=== PATIENT | female | born 1955 | race Caucasian/White ===

== ENCOUNTER 2016-11-12 15:08 | Inpatient (IN) | payer MEDICARE, MEDICAID ==
--- NOTE | 2016-11-12 16:01 | Diagnostic Imaging Report ---
Left tib-fib 2 views and left ankle 2 views Indication: Fracture Comparison: Left ankle x-ray the same day Findings: An external fixator is seen fixating the distal tibial shaft to the hindfoot. Comminuted distal fibular and medial malleolus fractures are noted. There are probable additional talar fractures. Osteopenia is noted. No x-ray evidence of hardware loosening. Degenerative changes of the hindfoot and midfoot are noted. Impression: External fixator fixating distal tibial and fibular fracture and probable talar fracture. The calcaneus cannot be well evaluated on this exam. No evidence of gross hardware loosening, however, exam was limited due to positioning. In the setting of trauma, if clinical symptoms persist and there is continued concern for an occult fracture, follow up exams in 5-7 days is suggested.
--- NOTE | 2016-11-12 16:49 | ED Physician Chart ---
ED Chief Complaint/HPI - Patient Information Date Seen:: 11/12/16 Time Seen:: 15:20 Chief Complaint:: LEFT LEG PAIN History of Present Illness:: THIS IS A 61 YO PSYCH PATIENT SENT TO ER FOR AN EVALUATION OF HER LEFT LOWER LEG WHICH S/P FIXATION SURGERY. SHE IS CHRONICALLY ILL WITH SEIZURES, HYPERTENSION AND A BIPOLAR CONDITION. Allergies:: Allergies Allergy/AdvReac Type Severity Reaction Status Date / Time No Known Allergies Allergy Verified 11/12/16 15:11 Vitals:: Vital Signs - 8 hr 11/12/16 15:11 Temp 97.7 F HR 51 RR 17 BP 142/68 O2 Sat % 98 Historian:: Patient Review:: Nurse's Note Reviewed, Old Chart Reviewed, Transfer documents Reviewed ED Review of Systems - Review of Systems General/Constitutional: No fever, No chills, No weight loss, No weakness, No diaphoresis, No edema, No loss of appetite Skin: No skin lesions, No rash, No bruising Head: No headache, No light-headedness Eyes: No loss of vision, No pain, No diplopia ENT: No earache, No nasal drainage, No sore throat, No tinnitus Neck: No neck pain, No swelling, No thyromegaly, No stiffness, No mass noted Cardio Vascular: No chest pain, No palpitations, No PND, No orthopnea, No edema Pulmonary: No SOB, No cough, No sputum, No wheezing GI: No nausea, No vomiting, No diarrhea, No pain, No melena, No hematochezia, No constipation, No hematemesis G/U: No dysuria, No frequency, No hematuria Musculoskeletal: Bone or joint pain (LEFT LOWER LEG PAIN), No back pain, No muscle pain Endocrine: No polyuria, No polydipsia Psychiatric: No prior psych history, No depression, No anxiety, No suicidal ideation Hematopoietic: No bruising, No lymphadenopathy Allergic/Immuno: No urticaria, No angioedema Neurological: No syncope, No focal symptoms, No weakness, No paresthesia, No headache, No seizure, No dizziness, No confusion, No vertigo ED Past Medical History - Past Medical History Obtainable: Yes Past Medical History: HTN, Dementia Family History: None Social History: Non Smoker, No Alcohol, No Drug Use, Care Facility Surgical History: other (LEFT LOWER LEG SURGERY) Family Medical History - Family Member Mother History Unknown: Yes ED Physical Exam - Physical Examination General/Constitutional: Awake, Well-developed, well-nourished, Alert, No distress, GCS 15, Non-toxic appearing, Ambulatory Head: Atraumatic Eyes: Lids, conjuctiva normal, PERRL, EOMI Skin: Nl inspection, No rash, No skin lesions, No ecchymosis, Well hydrated, No lymphadenopathy ENMT: External ears, nose nl, Nasal exam nl, Lips, teeth, gums nl Neck: Nontender, Full ROM w/o pain, No JVD, No nuchal rigidity, No bruit, No mass, No stridor Respiratory: Nl effort/Exclusion, Clear to Auscultation, No Wheeze/Rhonchi/Rales Cardio Vascular: RRR, No murmur, gallop, rubs, NL S1 S2 GI: No tenderness/rebounding/guarding, No organomegaly, No hernia, Normal BS's, Nondistended, No mass/bruits, No McBurney tenderness : No CVA tenderness Extremities: Full ROM, normal strength in all extremities, No edema, Normal digits & nails Other Extremities comments:: LEG ANKLE AND FOOT ARE S/P SURGERY WITH SWELLING AND PINKNESS. Neuro/Psych: Alert/oriented, DTR's symmetric, Normal sensory exam, Normal motor strength, Judgement/insight normal, Mood normal, Normal gait, No focal deficits Misc: normal gait, Normal back, No paraspinal tenderness ED Labs/Radiology/EKG Results - Lab Results Results: Abnormal Lab Results 11/12/16 11/12/16 11/12/16 16:55 16:55 16:55 WBC 5.2 RBC 3.86 Hgb 11.5 L Hct 34.4 L MCV 89.2 MCH 29.8 MCHC Differential 33.5 RDW 13.5 Plt Count 185 MPV 8.8 Neutrophils % 49.8 Lymphocytes % 37.6 Monocytes % 7.1 Eosinophils % 5.0 Basophils % 0.5 PT INR Sodium 120 L Potassium 3.7 Chloride 90 L Carbon Dioxide 24.1 Anion Gap 9.6 BUN 16 Creatinine 0.8 Est GFR ( Amer) > 60.0 Est GFR (Non-Af Amer) > 60.0 BUN/Creatinine Ratio 20.0 Glucose 102 Calcium 9.4 Total Bilirubin 0.3 AST 15 ALT 8 Alkaline Phosphatase 80 Troponin I Total Protein 6.0 Albumin 3.9 Globulin 2.1 Albumin/Globulin Ratio 1.9 H Triglycerides 142 Cholesterol 172 LDL Cholesterol Direct 101 HDL Cholesterol 65 11/12/16 11/12/16 16:55 16:55 WBC RBC Hgb Hct MCV MCH MCHC Differential RDW Plt Count MPV Neutrophils % Lymphocytes % Monocytes % Eosinophils % Basophils % PT 10.5 INR 1.01 Sodium Potassium Chloride Carbon Dioxide Anion Gap BUN Creatinine Est GFR ( Amer) Est GFR (Non-Af Amer) BUN/Creatinine Ratio Glucose Calcium Total Bilirubin AST ALT Alkaline Phosphatase Troponin I 0.01 Total Protein Albumin Globulin Albumin/Globulin Ratio Triglycerides Cholesterol LDL Cholesterol Direct HDL Cholesterol - Radiology Results Results: LEFT LOWER EXT X-RAY = S/P SURGERY NOTED. ED Assessment - Assessment General Assessment: LEFT LEG PAIN ELECTROLYTE IMBALANCE ED Septic Shock - . Is Septic Shock (SBP<90, OR Lactate>4 mmol\L) present?: No - <6hrs of presentation: Vital Signs: Vital Signs - 8 hr 11/12/16 15:11 Temp 97.7 F HR 51 RR 17 BP 142/68 O2 Sat % 98 ED Reassessment (Disposition) - Reassessment Reassessment Condition:: Unchanged - Diagnosis Diagnosis:: ELECTROLYE IMBALANCE LEFT LEG PAIN PSYCHOSIS - Patient Disposition Admitting Medical Physician:: Laurie Tesfaye ED Discharge Plan - Patient Disposition Admit/Discharge/Transfer: Acute Care w/in this hosp Condition at Disposition: Unchanged
[2016-11-12 17:10] LABS: % BASOPHILS 0.5 % (0.0-2.0); % LYMPHOCYTES 37.6 % (20.0-50.0); % MONOCYTES 7.1 % (2.0-10.0); % NEUTROPHILS 49.8 % (40.0-80.0); HEMATOCRIT 34.4 % (35.0-45.0); HEMOGLOBIN 11.5 gm/dL (11.7-15.5); MEAN CELL VOLUME 89.2 fl (81-100); MEAN CORPUSCULAR HEMOGLOBIN 29.8 pg (27.0-31.0); MEAN CORPUSCULAR HGB CONC 33.5 pg (28.0-36.0); MEAN PLATELET VOLUME 8.8 fl; NEUTROPHILE ABSOLUTE 2.5 Th/cmm (1.8-8.0); PLATELET COUNT 185 Th/cmm (150-400); RED BLOOD COUNT 3.86 Mil/cmm (3.80-5.10); RED CELL DISTRIBUTION WIDTH 13.5 % (11.5-20.0); WHITE BLOOD COUNT 5.2 Th/cmm (4.8-10.8)
[2016-11-12 17:19] LABS: INR 1.01 (0.5-1.4); PROTHROMBIN TIME (TEST) 10.5 SECONDS (9.5-11.5)
[2016-11-12 17:20] LABS: CHOLESTEROL 172 mg/dL (<200); TRIGLYCERIDES 142 mg/dL (<150)
[2016-11-12 17:22] LABS: ALB/GLOB RATIO 1.9 (1.0-1.8); ALKALINE PHOSPHATASE 80 U/L (34-104); BILIRUBIN,TOTAL 0.3 mg/dL (0.3-1.0); BUN - UREA NITROGEN 16 mg/dL (7-25); CALCIUM SERUM 9.4 mg/dL (8.6-10.3); CARBON DIOXIDE 24.1 mEq/L (21.0-31.0); CHLORIDE 90 mEq/L (98-107); CREATININE - SERUM 0.8 mg/dL (0.6-1.2); GLUCOSE 102 mg/dL (70-105); POTASSIUM SERUM 3.7 mEq/L (3.5-5.1); SGOT 15 U/L (13-39); SGPT/ALT 8 U/L (7-52)
[2016-11-12 17:25] LABS: ANION GAP 9.6 (7.0-16.0)
[2016-11-12 17:26] LABS: URINE BILIRUBIN NEGATIVE (NEGATIVE); URINE BLOOD NEGATIVE (NEGATIVE); URINE GLUCOSE (UA) NEGATIVE (NEGATIVE); URINE KETONE NEGATIVE (NEGATIVE); URINE PROTEIN NEGATIVE (NEGATIVE); URINE UROBILINOGEN 0.2 E.U./dL (0.2 - 1.0)
[2016-11-12 17:27] LABS: SODIUM SERUM 120 mEq/L (136-145)
[2016-11-12 17:35] LABS: URINE COLOR YELLOW
[2016-11-12 17:36] LABS: URINE BACTERIA OCCASIONAL /hpf (NONE SEEN); URINE EPITHELIAL CELLS OCCASIONAL /lpf (FEW); URINE RBC NONE SEEN /hpf (0-5)
[2016-11-12] MEDS ORDERED: Albuterol Nebulizer 2.5mg/3mL HHN PRN (22:03)
[2016-11-12] MEDS ORDERED: Diphenoxylate/Atropine 2.5mg Tab PO PRN (22:03)
[2016-11-12] MEDS ORDERED: Magnesium Hydroxide (MOM) 30 mL UDC PO PRN (22:05)
[2016-11-12] MEDS ORDERED: Fleet Enema 135 mL RC PRN (22:05)
[2016-11-12] MEDS ORDERED: Maalox 30 mL Cup PO PRN (22:05)
[2016-11-12] MEDS: Sodium Chloride 0.9% 1,000 ML IV SCH (22:22)
[2016-11-12 23:38] VITALS: BP 137/70
[2016-11-12] MEDS ORDERED: Pneumococcal Vaccine 0.5 mL Vial IM ONE (23:49)
--- NOTE | 2016-11-13 | History & Physical ---
ADMIT DATE: 11/12/2016 HISTORY OF PRESENT ILLNESS: The patient well known to me 61-year-old female patient known to have a history of bipolar disorder in the past, history of status post fixation surgery for her left lower ankle and she has persistent edema in that leg on and off, history of seizures, history of hypertension, history of hyponatremia in the past. The patient came because of increasing swelling, increase in pain and patient was admitted for further evaluation of Orthopedic evaluation as well as Psychiatric evaluation. PAST MEDICAL HISTORY: As enumerated above. REVIEW OF SYSTEMS: Negative. PHYSICAL EXAMINATION: HEAD: Normal. ENT: Normal. NECK: Supple, nontender. LUNGS: Clear. CARDIOVASCULAR SYSTEM: S1, S2 heard. ABDOMEN: Soft. Bowel sounds are heard. EXTREMITIES: Left ankle swelling was noted LABORATORY DATA: Sodium was 120, potassium was 3.7 and electrolytes were otherwise normal. Hemoglobin 11.5, hematocrit was 35. DIAGNOSES: Severe hyponatremia; left leg swelling, severe pain, status post prior surgery and history of psychosis. PLAN: The patient is being admitted. I will go ahead and give normal saline, to replace her sodium and I will have Dr. Simon see the patient. I will give her Lasix and also we will give pain medication and have Orthopedic consultation and I will follow the patient. JOB# [id number]
[2016-11-13] MEDS: Sodium Chloride 0.9% 1,000 ML IV SCH ×2 (03:52→12:37)
[2016-11-13] MEDS: Multivitamin w/ Minerals Tab PO SCH (08:59)
[2016-11-13] MEDS ORDERED: Non-Formulary Item 1 EA (Cranberry Fruit Extract [Cranberry] 425 MG) PO SCH (09:00)
[2016-11-13] MEDS: Pantoprazole 40 mg EC Tab PO SCH (09:00)
[2016-11-13] MEDS: Hydrocodone/APAP 5mg/325mg Tab PO PRN ×3 (09:04→22:29)
[2016-11-13] MEDS: Aspirin 81mg Chewable Tab PO SCH (09:05)
--- NOTE | 2016-11-13 14:34 | General Progress Note ---
Subjective - Review of Systems Events since last encounter: patient with no distress Objective - Results Result Diagrams: 11/12/16 16:55 11/12/16 16:55 Recent Labs: Laboratory Last Values WBC 5.2 Th/cmm (4.8-10.8) 11/12/16 16:55 RBC 3.86 Mil/cmm (3.80-5.10) 11/12/16 16:55 Hgb 11.5 gm/dL (11.7-15.5) L 11/12/16 16:55 Hct 34.4 % (35.0-45.0) L 11/12/16 16:55 MCV 89.2 fl (81-100) 11/12/16 16:55 MCH 29.8 pg (27.0-31.0) 11/12/16 16:55 MCHC Differential 33.5 pg (28.0-36.0) 11/12/16 16:55 RDW 13.5 % (11.5-20.0) 11/12/16 16:55 Plt Count 185 Th/cmm (150-400) 11/12/16 16:55 MPV 8.8 fl 11/12/16 16:55 Neutrophils % 49.8 % (40.0-80.0) 11/12/16 16:55 Lymphocytes % 37.6 % (20.0-50.0) 11/12/16 16:55 Monocytes % 7.1 % (2.0-10.0) 11/12/16 16:55 Eosinophils % 5.0 % (0.0-5.0) 11/12/16 16:55 Basophils % 0.5 % (0.0-2.0) 11/12/16 16:55 PT 10.5 SECONDS (9.5-11.5) 11/12/16 16:55 INR 1.01 (0.5-1.4) 11/12/16 16:55 Sodium 120 mEq/L (136-145) L 11/12/16 16:55 Potassium 3.7 mEq/L (3.5-5.1) 11/12/16 16:55 Chloride 90 mEq/L (98-107) L 11/12/16 16:55 Carbon Dioxide 24.1 mEq/L (21.0-31.0) 11/12/16 16:55 Anion Gap 9.6 (7.0-16.0) 11/12/16 16:55 BUN 16 mg/dL (7-25) 11/12/16 16:55 Creatinine 0.8 mg/dL (0.6-1.2) 11/12/16 16:55 Est GFR ( Amer) > 60.0 ml/min (>90) 11/12/16 16:55 Est GFR (Non-Af Amer) > 60.0 ml/min 11/12/16 16:55 BUN/Creatinine Ratio 20.0 11/12/16 16:55 Glucose 102 mg/dL (70-105) 11/12/16 16:55 Calcium 9.4 mg/dL (8.6-10.3) 11/12/16 16:55 Total Bilirubin 0.3 mg/dL (0.3-1.0) 11/12/16 16:55 AST 15 U/L (13-39) 11/12/16 16:55 ALT 8 U/L (7-52) 11/12/16 16:55 Alkaline Phosphatase 80 U/L (34-104) 11/12/16 16:55 Troponin I 0.01 ng/mL (0.01-0.05) 11/12/16 16:55 Total Protein 6.0 gm/dL (6.0-8.3) 11/12/16 16:55 Albumin 3.9 gm/dL (3.7-5.3) 11/12/16 16:55 Globulin 2.1 gm/dL 11/12/16 16:55 Albumin/Globulin Ratio 1.9 (1.0-1.8) H 11/12/16 16:55 Triglycerides 142 mg/dL (<150) 11/12/16 16:55 Cholesterol 172 mg/dL (<200) 11/12/16 16:55 LDL Cholesterol Direct 101 mg/dL (75-193) 11/12/16 16:55 HDL Cholesterol 65 mg/dL (23-92) 11/12/16 16:55 TSH 1.62 uIU/ml (0.34-5.60) 11/12/16 16:55 Urine Source CLEAN C 11/12/16 16:45 Urine Color YELLOW 11/12/16 16:45 Urine Clarity CLEAR (CLEAR) 11/12/16 16:45 Urine pH 7.0 (4.6 - 8.0) 11/12/16 16:45 Ur Specific [place] <= 1.005 (1.005-1.030) 11/12/16 16:45 Urine Protein NEGATIVE mg/dL (NEGATIVE) 11/12/16 16:45 Urine Glucose (UA) NEGATIVE mg/dL (NEGATIVE) 11/12/16 16:45 Urine Ketones NEGATIVE mg/dL (NEGATIVE) 11/12/16 16:45 Urine Blood NEGATIVE (NEGATIVE) 11/12/16 16:45 Urine Nitrate NEGATIVE (NEGATIVE) 11/12/16 16:45 Urine Bilirubin NEGATIVE (NEGATIVE) 11/12/16 16:45 Urine Urobilinogen 0.2 E.U./dL (0.2 - 1.0) 11/12/16 16:45 Ur Leukocyte Esterase SMALL (NEGATIVE) H 11/12/16 16:45 Urine RBC NONE SEEN /hpf (0-5) 11/12/16 16:45 Urine WBC 2-5 /hpf (0-5) 11/12/16 16:45 Ur Epithelial Cells OCCASIONAL /lpf (FEW) 11/12/16 16:45 Urine Bacteria OCCASIONAL /hpf (NONE SEEN) 11/12/16 16:45 RPR NONREACTIVE (NONREACTIVE) 11/12/16 16:55 - Physical Exam Vitals and I&O: Vital Signs Temp 98.7 F 11/13/16 12:00 Pulse 50 11/13/16 12:00 Resp 20 11/13/16 12:00 BP 137/63 11/13/16 12:00 Pulse Ox 97 11/13/16 12:00 Intake & Output 11/12/16 11/13/16 11/13/16 18:59 06:59 18:59 Intake Total 770 1000 Balance 770 1000 Weight (lbs) 72.348 kg Intake: Intake, IV Amount 770 1000 Sodium Chloride 0.9% 1, 770 1000 000 ml @ 140 mls/hr IV . Q7H9M [facility] Rx#:[id number] Active Medications: Current Medications Acetaminophen (Tylenol) 650 mg PO Q4HR PRN PRN Reason: FEVER >101 OR PAIN Last Admin: 11/13/16 12:37 Dose: 650 mg Acetaminophen/Hydrocodone Bitart ([place] 5mg/325mg) 1 tab PO Q6H PRN PRN Reason: Severe Pain Last Admin: 11/13/16 09:04 Dose: 1 tab Al Hydrox/Mg Hydrox/Simethicone (Maalox) 30 ml PO Q6H PRN PRN Reason: Heartburn Albuterol Sulfate (Albuterol 2.5mg/3ml Neb Ud) 2.5 mg HHN Q4H PRN PRN Reason: Shortness of Breath Ascorbic Acid (Vitamin C) 1,000 mg PO DAILY JULIA Stop: 01/12/17 08:59 Last Admin: 11/13/16 09:00 Dose: 1,000 mg Aspirin (Aspirin Chewable) 81 mg PO DAILY@1000 JULIA Stop: 01/12/17 08:59 Last Admin: 11/13/16 09:05 Dose: 81 mg Atenolol (Tenormin) 50 mg PO DAILY JULIA Stop: 01/12/17 08:59 Last Admin: 11/13/16 09:00 Dose: 50 mg Carisoprodol (Soma) 350 mg PO Q8H PRN PRN Reason: MUSCLE PAIN Stop: 01/11/17 22:02 Last Admin: 11/13/16 13:45 Dose: 350 mg Diphenoxylate HCl/Atropine (Lomotil) 1 tab PO Q8H PRN PRN Reason: Diarrhea Stop: 01/11/17 22:02 Docusate Sodium (Colace) 100 mg PO DAILY [facility] Stop: 01/12/17 08:59 Last Admin: 11/13/16 08:59 Dose: 100 mg Escitalopram Oxalate (Lexapro) 10 mg PO DAILY JULIA PRN Reason: Protocol Stop: 01/12/17 08:59 Gabapentin (Neurontin) 100 mg PO DAILY [facility] Stop: 01/12/17 08:59 Last Admin: 11/13/16 08:59 Dose: 100 mg Hydrochlorothiazide (Hctz) 12.5 mg PO DAILY [facility] Stop: 01/12/17 08:59 Last Admin: 11/13/16 08:59 Dose: 12.5 mg Sodium Chloride (Nacl 0.9%) 1,000 mls @ 140 mls/hr IV .Q7H9M [facility] Stop: 01/11/17 20:49 Last Admin: 11/13/16 12:37 Dose: 140 mls/hr Lorazepam (Ativan) 1 mg PO Q6H PRN; Protocol PRN Reason: Anxiety Stop: 01/11/17 22:04 Magnesium Hydroxide (Milk Of Magnesia) 30 ml PO HS PRN PRN Reason: Constipation Stop: 01/11/17 22:04 Naproxen (Naprosyn) 500 mg PO BIDWM JULIA Stop: 01/12/17 11:59 Last Admin: 11/13/16 13:42 Dose: 500 mg Ondansetron HCl (Zofran Odt) 4 mg PO Q6HR PRN PRN Reason: Nausea / Vomiting Stop: 01/11/17 22:04 Pantoprazole Sodium (Protonix) 40 mg PO DAILY JULIA Stop: 01/12/17 08:59 Last Admin: 11/13/16 09:00 Dose: 40 mg Quetiapine Fumarate (Seroquel) 25 mg PO HS JULIA PRN Reason: Protocol Stop: 01/12/17 20:59 Sodium Phosphate (Fleet Enema) 135 ml RC Q48H PRN PRN Reason: IF DULCOLAX INEFFECTIVE FOR CO Stop: 01/11/17 22:04 Assessment/Plan - Problem List Patient Problems: All Active Problems PAIN AND SWELLING TO LEFT ANKLE (Acute)
[2016-11-13] MEDS ORDERED: Sodium Chloride 3% 500 ML IV ONE (14:43)
[2016-11-13] MEDS ORDERED: VTE Chemical Prophylaxis Screen/Admission MC PRN (15:20)
--- NOTE | 2016-11-14 02:25 | Consultation ---
DATE OF CONSULTATION: 11/13/[address] Viera. IDENTIFYING INFORMATION: The patient is a 61-year-old female. HISTORY OF PRESENT ILLNESS: The patient reports she has depression. The patient reports she has been depressed, has long history of depression off and on, but recently got worse in the last 2 months. She reported that she has been having difficulty with sleep unless she takes her medication. She is taking Seroquel at bedtime that help her sleep as well as Lexapro 10 mg a day. The patient reported no auditory or visual hallucination or paranoia. No substance abuse problems. PAST PSYCHIATRIC HISTORY: Long history of depression off and on especially when she is going through divorce with her . She is currently and she is going through some legal issues with her . She is trying to get some more time because she is not giving me money. The patient reported no prior suicide attempt. ____ she sees a psychiatrist as an outpatient and I am happy with her medication. MEDICAL HISTORY: Deferred to the medical doctor. FAMILY AND SOCIAL HISTORY: The patient is . She has 3 children. 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 No substance abuse. Never had substance abuse problems. She has a son and daughter who take medication for depression. No history of abuse. She has some legal issues with her regarding alimony. MENTAL STATUS EXAMINATION: The patient is appropriately dressed, appropriately groomed. She was alert and oriented to place, person, time, and situation, reports feeling depressed, overwhelmed. No suicidal ideation, no homicidal ideation, no paranoia. She denies any intent to harm anyone. She seems to have average intelligence. Her long and short term memory is intact. Her insight and judgment is fair. IMPRESSION: Major depression, recurrent with no psychosis. MEDICAL DIAGNOSES: Deferred to the medical doctor. I would recommend to continue her medication. The patient needs follow up with the psychiatrist upon discharge. Thank you very much for allowing me to participate in the care of this most interesting lady. JOB# [id number]
[2016-11-14 06:37] LABS: ANION GAP 8.3 (7.0-16.0); BUN - UREA NITROGEN 10 mg/dL (7-25); BUN/CREATININE RATIO 16.7; CALCIUM SERUM 9.1 mg/dL (8.6-10.3); CARBON DIOXIDE 24.5 mEq/L (21.0-31.0); CHLORIDE 101 mEq/L (98-107); CREATININE - SERUM 0.6 mg/dL (0.6-1.2); GLUCOSE 106 mg/dL (70-105); POTASSIUM SERUM 3.8 mEq/L (3.5-5.1); SODIUM SERUM 130 mEq/L (136-145); URIC ACID 2.4 mg/dL (2.3-6.6)
[2016-11-14] MEDS: Multivitamin w/ Minerals Tab PO SCH (08:29)
[2016-11-14] MEDS: Pantoprazole 40 mg EC Tab PO SCH (08:29)
--- NOTE | 2016-11-14 09:56 | General Progress Note ---
Subjective - Review of Systems Events since last encounter: patient c/o left leg pain and swelling no acute distress denies sob Objective - Results Result Diagrams: 11/12/16 16:55 11/14/16 05:50 Recent Labs: Laboratory Last Values WBC 5.2 Th/cmm (4.8-10.8) 11/12/16 16:55 RBC 3.86 Mil/cmm (3.80-5.10) 11/12/16 16:55 Hgb 11.5 gm/dL (11.7-15.5) L 11/12/16 16:55 Hct 34.4 % (35.0-45.0) L 11/12/16 16:55 MCV 89.2 fl (81-100) 11/12/16 16:55 MCH 29.8 pg (27.0-31.0) 11/12/16 16:55 MCHC Differential 33.5 pg (28.0-36.0) 11/12/16 16:55 RDW 13.5 % (11.5-20.0) 11/12/16 16:55 Plt Count 185 Th/cmm (150-400) 11/12/16 16:55 MPV 8.8 fl 11/12/16 16:55 Neutrophils % 49.8 % (40.0-80.0) 11/12/16 16:55 Lymphocytes % 37.6 % (20.0-50.0) 11/12/16 16:55 Monocytes % 7.1 % (2.0-10.0) 11/12/16 16:55 Eosinophils % 5.0 % (0.0-5.0) 11/12/16 16:55 Basophils % 0.5 % (0.0-2.0) 11/12/16 16:55 PT 10.5 SECONDS (9.5-11.5) 11/12/16 16:55 INR 1.01 (0.5-1.4) 11/12/16 16:55 Sodium 130 mEq/L (136-145) L 11/14/16 05:50 Potassium 3.8 mEq/L (3.5-5.1) 11/14/16 05:50 Chloride 101 mEq/L (98-107) 11/14/16 05:50 Carbon Dioxide 24.5 mEq/L (21.0-31.0) 11/14/16 05:50 Anion Gap 8.3 (7.0-16.0) 11/14/16 05:50 BUN 10 mg/dL (7-25) 11/14/16 05:50 Creatinine 0.6 mg/dL (0.6-1.2) 11/14/16 05:50 Est GFR ( Amer) > 60.0 ml/min (>90) 11/14/16 05:50 Est GFR (Non-Af Amer) > 60.0 ml/min 11/14/16 05:50 BUN/Creatinine Ratio 16.7 11/14/16 05:50 Glucose 106 mg/dL (70-105) H 11/14/16 05:50 Uric Acid 2.4 mg/dL (2.3-6.6) 11/14/16 05:50 Calcium 9.1 mg/dL (8.6-10.3) 11/14/16 05:50 Total Bilirubin 0.3 mg/dL (0.3-1.0) 11/12/16 16:55 AST 15 U/L (13-39) 11/12/16 16:55 ALT 8 U/L (7-52) 11/12/16 16:55 Alkaline Phosphatase 80 U/L (34-104) 11/12/16 16:55 Troponin I 0.01 ng/mL (0.01-0.05) 11/12/16 16:55 Total Protein 6.0 gm/dL (6.0-8.3) 11/12/16 16:55 Albumin 3.9 gm/dL (3.7-5.3) 11/12/16 16:55 Globulin 2.1 gm/dL 11/12/16 16:55 Albumin/Globulin Ratio 1.9 (1.0-1.8) H 11/12/16 16:55 Triglycerides 142 mg/dL (<150) 11/12/16 16:55 Cholesterol 172 mg/dL (<200) 11/12/16 16:55 LDL Cholesterol Direct 101 mg/dL (75-193) 11/12/16 16:55 HDL Cholesterol 65 mg/dL (23-92) 11/12/16 16:55 TSH 1.62 uIU/ml (0.34-5.60) 11/12/16 16:55 Urine Source CLEAN C 11/12/16 16:45 Urine Color YELLOW 11/12/16 16:45 Urine Clarity CLEAR (CLEAR) 11/12/16 16:45 Urine pH 7.0 (4.6 - 8.0) 11/12/16 16:45 Ur Specific [place] <= 1.005 (1.005-1.030) 11/12/16 16:45 Urine Protein NEGATIVE mg/dL (NEGATIVE) 11/12/16 16:45 Urine Glucose (UA) NEGATIVE mg/dL (NEGATIVE) 11/12/16 16:45 Urine Ketones NEGATIVE mg/dL (NEGATIVE) 11/12/16 16:45 Urine Blood NEGATIVE (NEGATIVE) 11/12/16 16:45 Urine Nitrate NEGATIVE (NEGATIVE) 11/12/16 16:45 Urine Bilirubin NEGATIVE (NEGATIVE) 11/12/16 16:45 Urine Urobilinogen 0.2 E.U./dL (0.2 - 1.0) 11/12/16 16:45 Ur Leukocyte Esterase SMALL (NEGATIVE) H 11/12/16 16:45 Urine RBC NONE SEEN /hpf (0-5) 11/12/16 16:45 Urine WBC 2-5 /hpf (0-5) 11/12/16 16:45 Ur Epithelial Cells OCCASIONAL /lpf (FEW) 11/12/16 16:45 Urine Bacteria OCCASIONAL /hpf (NONE SEEN) 11/12/16 16:45 Ur Random Sodium 56 mmol/L 11/13/16 20:50 RPR NONREACTIVE (NONREACTIVE) 11/12/16 16:55 - Physical Exam Vitals and I&O: Vital Signs Temp 97.2 F 11/14/16 04:00 Pulse 56 11/14/16 08:30 Resp 19 11/14/16 04:00 BP 135/68 11/14/16 08:30 Pulse Ox 96 11/14/16 04:00 Intake & Output 11/13/16 11/14/16 11/14/16 18:59 06:59 18:59 Intake Total 1000 900 Balance 1000 900 Weight (lbs) 73.754 kg Intake: Intake, IV Amount 1000 Sodium Chloride 0.9% 1, 1000 000 ml @ 140 mls/hr IV . Q7H9M [facility] Rx#:[id number] Oral 900 Other: # Voids 2 Active Medications: Current Medications Acetaminophen (Tylenol) 650 mg PO Q4HR PRN PRN Reason: FEVER >101 OR PAIN Last Admin: 11/13/16 12:37 Dose: 650 mg Acetaminophen/Hydrocodone Bitart ([place] 5mg/325mg) 1 tab PO Q6H PRN PRN Reason: Severe Pain Last Admin: 11/13/16 22:29 Dose: 1 tab Al Hydrox/Mg Hydrox/Simethicone (Maalox) 30 ml PO Q6H PRN PRN Reason: Heartburn Albuterol Sulfate (Albuterol 2.5mg/3ml Neb Ud) 2.5 mg HHN Q4H PRN PRN Reason: Shortness of Breath Ascorbic Acid (Vitamin C) 1,000 mg PO DAILY [facility] Stop: 01/12/17 08:59 Last Admin: 11/14/16 08:29 Dose: 1,000 mg Aspirin (Aspirin Chewable) 81 mg PO DAILY@1000 [facility] Stop: 01/12/17 08:59 Last Admin: 11/13/16 09:05 Dose: 81 mg Atenolol (Tenormin) 50 mg PO DAILY [facility] Stop: 01/12/17 08:59 Last Admin: 11/14/16 08:30 Dose: Not Given Carisoprodol (Soma) 350 mg PO Q8H PRN PRN Reason: MUSCLE PAIN Stop: 01/11/17 22:02 Last Admin: 11/13/16 13:45 Dose: 350 mg Diphenoxylate HCl/Atropine (Lomotil) 1 tab PO Q8H PRN PRN Reason: Diarrhea Stop: 01/11/17 22:02 Docusate Sodium (Colace) 100 mg PO DAILY [facility] Stop: 01/12/17 08:59 Last Admin: 11/14/16 08:29 Dose: 100 mg Escitalopram Oxalate (Lexapro) 10 mg PO DAILY [facility] PRN Reason: Protocol Stop: 01/12/17 08:59 Last Admin: 11/14/16 08:30 Dose: 10 mg Gabapentin (Neurontin) 100 mg PO DAILY [facility] Stop: 01/12/17 08:59 Last Admin: 11/14/16 08:29 Dose: 100 mg Heparin Sodium (Porcine) (Heparin) 5,000 units SUBQ Q12H [facility] Stop: 01/12/17 20:59 Last Admin: 11/14/16 08:30 Dose: 5,000 units Sodium Chloride (Hypertonic 3%) 500 mls @ 20 mls/hr IV X1 ONE Stop: 11/14/16 15:42 Last Admin: 11/13/16 15:42 Dose: 20 mls/hr Lorazepam (Ativan) 1 mg PO Q6H PRN; Protocol PRN Reason: Anxiety Stop: 01/11/17 22:04 Last Admin: 11/13/16 23:06 Dose: 1 mg Magnesium Hydroxide (Milk Of Magnesia) 30 ml PO HS PRN PRN Reason: Constipation Stop: 01/11/17 22:04 Miscellaneous ([employer] Prophylaxis Screen/ Admission) 1 ea [facility] PRN PRN PRN Reason: PROTOCOL Stop: 01/12/17 15:19 Naproxen (Naprosyn) 500 mg PO BIDWM JULIA Stop: 01/12/17 11:59 Last Admin: 11/14/16 08:29 Dose: 500 mg Ondansetron HCl (Zofran Odt) 4 mg PO Q6HR PRN PRN Reason: Nausea / Vomiting Stop: 01/11/17 22:04 Pantoprazole Sodium (Protonix) 40 mg PO DAILY JULIA Stop: 01/12/17 08:59 Last Admin: 11/14/16 08:29 Dose: 40 mg Quetiapine Fumarate (Seroquel) 25 mg PO HS JULIA PRN Reason: Protocol Stop: 01/12/17 20:59 Last Admin: 11/13/16 23:06 Dose: 25 mg Sodium Phosphate (Fleet Enema) 135 ml RC Q48H PRN PRN Reason: IF DULCOLAX INEFFECTIVE FOR CO Stop: 01/11/17 22:04 Assessment/Plan - Problem List Patient Problems: All Active Problems PAIN AND SWELLING TO LEFT ANKLE (Acute)
[2016-11-14] MEDS: Aspirin 81mg Chewable Tab PO SCH (10:31)
[2016-11-14] MEDS: Hydrocodone/APAP 5mg/325mg Tab PO PRN ×2 (15:48→22:36)
--- NOTE | 2016-11-15 02:39 | Consultation ---
DATE OF CONSULTATION: 11/13/2016 ATTENDING: Sammi Tesfaye M.D. REASON FOR CONSULTATION: Acute on chronic hyponatremia. HISTORY OF PRESENT ILLNESS: This is a 61-year-old female with past medical history of hyponatremia who came in because of progressive left foot edema. A few days prior to admission, the patient noted progressive edema of her left foot. She had intermittent edema since her last surgery in August. A few hours prior to admission, she also experienced pain along with worsening edema. She was then brought to the Emergency Room. Left ankle x-rays revealed external fixation of the distal tibial/fibula fracture, as well as the probable thallus fracture. She does have a history of hyponatremia. Labs drawn 3 months ago showed a sodium of 112, which eventually improved to 124. Labs today revealed a sodium of 120. She has no nausea and vomiting, no diarrhea. She has been on Lexapro. PAST MEDICAL HISTORY: 1. Multiple fractures involving the left ankle, humerus, and wrist. 2. Bipolar disorder. 3. Depression/anxiety. 4. Epilepsy. 5. Anemia of chronic disease. 6. Bronchial asthma. 7. Chronic hyponatremia. PAST SURGICAL HISTORY: 1. Status post surgical correction of multiple fractures. 2. Status post external fixation of left ankle. CURRENT MEDICATIONS: She is currently on acetaminophen, albuterol, ascorbic acid, aspirin, atenolol, soma, docusate sodium, escitalopram oxalate, gabapentin, heparin, hydrocodone, APAP, lorazepam, magnesium hydroxide, Naprosyn, ondansetron, pantoprazole, quetiapine. ALLERGIES: No known drug allergies. SOCIAL HISTORY: No history of alcohol or tobacco use. She used to work at the [employer]. FAMILY HISTORY: Noncontributory to present illness. REVIEW OF SYSTEMS: GENERAL: She has on and off weakness. Appetite had been fair. No fever nor chills. HEENT: No mention of headaches, no dizziness. CARDIORESPIRATORY: No history of hypertension, no heart disease. Denied any chest pain, palpitations, diaphoresis or cough. GASTROINTESTINAL: No nausea, vomiting, abdominal pain or cramping, hematemesis, melena, hematochezia, no diarrhea. ENDOCRINE: No history of diabetes, thyroid abnormalities, no dyslipidemia. MUSCULOSKELETAL: Multiple joint arthralgias, history of multiple fractures. GENITOURINARY: No history of kidney failure. No dysuria, no hematuria. Has history of chronic hyponatremia. HEMATOLOGIC: She does have some mild anemia. NEUROPSYCHIATRIC: No syncopal episode, no seizure activity. She has depression/anxiety, epilepsy, as well as bipolar disorder. PHYSICAL EXAMINATION: GENERAL: The patient is awake, verbal complaining of left foot pain. VITAL SIGNS: Blood pressure is 138/77, pulse 54, temperature 98.2 degrees. SKIN: Good turgor, warm, no rash, no jaundice appreciated. HEENT: Head: Normocephalic, atraumatic. Eyes: Extraocular muscles intact. Pupils equal, round, reactive to light and accommodates. Anicteric sclerae, pink conjunctivae. Nose: Midline nasal septum. Mouth: Moist mucosa with adequate dentition. NECK: Supple. No adenopathy. No thyromegaly. No bruits. Trachea palpated in the midline. CHEST AND CARDIOVASCULAR: S1, S2. No rub, murmur, no gallop appreciated. Point of maximal impulse fifth intercostal space, left midclavicular line. No abdominal or femoral bruits appreciated. LUNGS: Equal expansion. No use of accessory muscles. No supraclavicular retractions, decreased breath sounds, clear to auscultation without any wheeze. BREAST: Symmetrical, without any discharge. ABDOMEN: Flat, soft. Positive for bowel sounds. No bruits either diastolic or systolic. RECTAL: The patient refused. GENITOURINARY: Normal appearing female genitalia. MUSCULOSKELETAL: No effusions present in her joints, but unable to assess range of motion especially of the left lower extremity. NEUROLOGIC: The patient is alert, verbal, motor is 5/5. Cranial nerves 2-12 intact. Sensory intact. EXTREMITIES: She does have edema involving her left foot with the presence of external fixation. There is tenderness on palpation of her left foot. LABORATORY DATA: Did reveal sodium of 120, potassium 3.7, chloride 90, bicarbonate 24, BUN 16, creatinine 0.8, glucose 102, calcium 9.4, albumin 3.9. White count 5.2, hemoglobin 11.5, hematocrit 34.4, platelets 185, polys 49.8%. IMPRESSION: 1. Acute on chronic hyponatremia (syndrome of inappropriate antidiuretic hormone). Possibility of syndrome of inappropriate antidiuretic hormone is being considered because the patient has been on SSRI for sometime now. However, also need to consider dilutional contribution secondary to polydipsia due to the fact that the patient has a very dilute urine. 2. Left foot edema, which is likely due to her surgery. 3. Multiple fractures involving the left ankle, humerus, and wrist status post surgical correction. 4. Bipolar disorder. 5. Depression/anxiety. 6. Epilepsy. 7. Anemia of chronic disease. 8. Bronchial asthma. PLAN: 1. Fluid restriction. 2. Administered hypertonic saline. 3. Urine spot sodium. 4. Serum osmolality, uric acid. 5. Cortisone and aldosterone. 6. Administer one dose of Lasix. [facility]# [id number]
[2016-11-15 05:26] LABS: ANION GAP 8.5 (7.0-16.0); BUN - UREA NITROGEN 14 mg/dL (7-25); CALCIUM SERUM 9.1 mg/dL (8.6-10.3); CARBON DIOXIDE 25.5 mEq/L (21.0-31.0); CHLORIDE 98 mEq/L (98-107); CREATININE - SERUM 0.7 mg/dL (0.6-1.2); GLUCOSE 102 mg/dL (70-105); SODIUM SERUM 128 mEq/L (136-145)
[2016-11-15] MEDS: Multivitamin w/ Minerals Tab PO SCH (08:45)
[2016-11-15] MEDS: Pantoprazole 40 mg EC Tab PO SCH (08:45)
--- NOTE | 2016-11-15 08:46 | General Progress Note ---
Subjective - Review of Systems Events since last encounter: patient with left leg swelling and pain no fever Objective - Results Result Diagrams: 11/12/16 16:55 11/15/16 04:53 Recent Labs: Laboratory Last Values WBC 5.2 Th/cmm (4.8-10.8) 11/12/16 16:55 RBC 3.86 Mil/cmm (3.80-5.10) 11/12/16 16:55 Hgb 11.5 gm/dL (11.7-15.5) L 11/12/16 16:55 Hct 34.4 % (35.0-45.0) L 11/12/16 16:55 MCV 89.2 fl (81-100) 11/12/16 16:55 MCH 29.8 pg (27.0-31.0) 11/12/16 16:55 MCHC Differential 33.5 pg (28.0-36.0) 11/12/16 16:55 RDW 13.5 % (11.5-20.0) 11/12/16 16:55 Plt Count 185 Th/cmm (150-400) 11/12/16 16:55 MPV 8.8 fl 11/12/16 16:55 Neutrophils % 49.8 % (40.0-80.0) 11/12/16 16:55 Lymphocytes % 37.6 % (20.0-50.0) 11/12/16 16:55 Monocytes % 7.1 % (2.0-10.0) 11/12/16 16:55 Eosinophils % 5.0 % (0.0-5.0) 11/12/16 16:55 Basophils % 0.5 % (0.0-2.0) 11/12/16 16:55 PT 10.5 SECONDS (9.5-11.5) 11/12/16 16:55 INR 1.01 (0.5-1.4) 11/12/16 16:55 Sodium 128 mEq/L (136-145) L 11/15/16 04:53 Potassium 4.0 mEq/L (3.5-5.1) 11/15/16 04:53 Chloride 98 mEq/L (98-107) 11/15/16 04:53 Carbon Dioxide 25.5 mEq/L (21.0-31.0) 11/15/16 04:53 Anion Gap 8.5 (7.0-16.0) 11/15/16 04:53 BUN 14 mg/dL (7-25) 11/15/16 04:53 Creatinine 0.7 mg/dL (0.6-1.2) 11/15/16 04:53 Est GFR ( Amer) > 60.0 ml/min (>90) 11/15/16 04:53 Est GFR (Non-Af Amer) > 60.0 ml/min 11/15/16 04:53 BUN/Creatinine Ratio 20.0 11/15/16 04:53 Glucose 102 mg/dL (70-105) 11/15/16 04:53 Uric Acid 2.4 mg/dL (2.3-6.6) 11/14/16 05:50 Calcium 9.1 mg/dL (8.6-10.3) 11/15/16 04:53 Total Bilirubin 0.3 mg/dL (0.3-1.0) 11/12/16 16:55 AST 15 U/L (13-39) 11/12/16 16:55 ALT 8 U/L (7-52) 11/12/16 16:55 Alkaline Phosphatase 80 U/L (34-104) 11/12/16 16:55 Troponin I 0.01 ng/mL (0.01-0.05) 11/12/16 16:55 Total Protein 6.0 gm/dL (6.0-8.3) 11/12/16 16:55 Albumin 3.9 gm/dL (3.7-5.3) 11/12/16 16:55 Globulin 2.1 gm/dL 11/12/16 16:55 Albumin/Globulin Ratio 1.9 (1.0-1.8) H 11/12/16 16:55 Triglycerides 142 mg/dL (<150) 11/12/16 16:55 Cholesterol 172 mg/dL (<200) 11/12/16 16:55 LDL Cholesterol Direct 101 mg/dL (75-193) 11/12/16 16:55 HDL Cholesterol 65 mg/dL (23-92) 11/12/16 16:55 TSH 1.62 uIU/ml (0.34-5.60) 11/12/16 16:55 Urine Source CLEAN C 11/12/16 16:45 Urine Color YELLOW 11/12/16 16:45 Urine Clarity CLEAR (CLEAR) 11/12/16 16:45 Urine pH 7.0 (4.6 - 8.0) 11/12/16 16:45 Ur Specific [place] <= 1.005 (1.005-1.030) 11/12/16 16:45 Urine Protein NEGATIVE mg/dL (NEGATIVE) 11/12/16 16:45 Urine Glucose (UA) NEGATIVE mg/dL (NEGATIVE) 11/12/16 16:45 Urine Ketones NEGATIVE mg/dL (NEGATIVE) 11/12/16 16:45 Urine Blood NEGATIVE (NEGATIVE) 11/12/16 16:45 Urine Nitrate NEGATIVE (NEGATIVE) 11/12/16 16:45 Urine Bilirubin NEGATIVE (NEGATIVE) 11/12/16 16:45 Urine Urobilinogen 0.2 E.U./dL (0.2 - 1.0) 11/12/16 16:45 Ur Leukocyte Esterase SMALL (NEGATIVE) H 11/12/16 16:45 Urine RBC NONE SEEN /hpf (0-5) 11/12/16 16:45 Urine WBC 2-5 /hpf (0-5) 11/12/16 16:45 Ur Epithelial Cells OCCASIONAL /lpf (FEW) 11/12/16 16:45 Urine Bacteria OCCASIONAL /hpf (NONE SEEN) 11/12/16 16:45 Ur Random Sodium 56 mmol/L 11/13/16 20:50 RPR NONREACTIVE (NONREACTIVE) 11/12/16 16:55 - Physical Exam Vitals and I&O: Vital Signs Temp 96.3 F 11/15/16 04:47 Pulse 61 11/15/16 04:47 Resp 18 11/15/16 04:47 BP 107/69 11/15/16 04:47 Pulse Ox 96 11/15/16 04:47 Intake & Output 11/14/16 11/15/16 11/15/16 18:59 06:59 18:59 Intake Total 1520 240 Balance 1520 240 Weight (lbs) 76.204 kg 76.204 kg Intake: Intake, IV Amount 500 Sodium Chloride 3% 500 ml 500 @ 20 mls/hr IV X1 ONE Rx #:[id number] Oral 1020 240 Other: # Voids 4 3 # Bowel Movements 1 Active Medications: Current Medications Acetaminophen (Tylenol) 650 mg PO Q4HR PRN PRN Reason: FEVER >101 OR PAIN Last Admin: 11/13/16 12:37 Dose: 650 mg Acetaminophen/Hydrocodone Bitart ([place] 5mg/325mg) 1 tab PO Q6H PRN PRN Reason: Severe Pain Last Admin: 11/14/16 22:36 Dose: 1 tab Al Hydrox/Mg Hydrox/Simethicone (Maalox) 30 ml PO Q6H PRN PRN Reason: Heartburn Albuterol Sulfate (Albuterol 2.5mg/3ml Neb Ud) 2.5 mg HHN Q4H PRN PRN Reason: Shortness of Breath Ascorbic Acid (Vitamin C) 1,000 mg PO DAILY [facility] Stop: 01/12/17 08:59 Last Admin: 11/14/16 08:29 Dose: 1,000 mg Aspirin (Aspirin Chewable) 81 mg PO DAILY@1000 [facility] Stop: 01/12/17 08:59 Last Admin: 11/14/16 10:31 Dose: 81 mg Carisoprodol (Soma) 350 mg PO Q8H PRN PRN Reason: MUSCLE PAIN Stop: 01/11/17 22:02 Last Admin: 11/14/16 10:31 Dose: 350 mg Diphenoxylate HCl/Atropine (Lomotil) 1 tab PO Q8H PRN PRN Reason: Diarrhea Stop: 01/11/17 22:02 Docusate Sodium (Colace) 100 mg PO DAILY [facility] Stop: 01/12/17 08:59 Last Admin: 11/14/16 08:29 Dose: 100 mg Escitalopram Oxalate (Lexapro) 10 mg PO DAILY [facility] PRN Reason: Protocol Stop: 01/12/17 08:59 Last Admin: 11/14/16 08:30 Dose: 10 mg Gabapentin (Neurontin) 100 mg PO DAILY [facility] Stop: 01/12/17 08:59 Last Admin: 11/14/16 08:29 Dose: 100 mg Heparin Sodium (Porcine) (Heparin) 5,000 units SUBQ Q12H [facility] Stop: 01/12/17 20:59 Last Admin: 11/14/16 20:42 Dose: 5,000 units Hydralazine HCl (Apresoline) 25 mg PO DAILY [facility] Stop: 01/13/17 16:29 Last Admin: 09/13/17 16:36 Dose: 25 mg Lorazepam (Ativan) 1 mg PO Q6H PRN; Protocol PRN Reason: Anxiety Stop: 01/11/17 22:04 Last Admin: 11/14/16 22:36 Dose: 1 mg Magnesium Hydroxide (Milk Of Magnesia) 30 ml PO HS PRN PRN Reason: Constipation Stop: 01/11/17 22:04 Miscellaneous (Vte [employer] Prophylaxis Screen/ Admission) 1 ea [facility] PRN PRN PRN Reason: PROTOCOL Stop: 01/12/17 15:19 Naproxen (Naprosyn) 500 mg PO BIDWM JULIA Stop: 01/12/17 11:59 Last Admin: 11/14/16 18:06 Dose: 500 mg Ondansetron HCl (Zofran Odt) 4 mg PO Q6HR PRN PRN Reason: Nausea / Vomiting Stop: 01/11/17 22:04 Pantoprazole Sodium (Protonix) 40 mg PO DAILY [facility] Stop: 01/12/17 08:59 Last Admin: 11/14/16 08:29 Dose: 40 mg Quetiapine Fumarate (Seroquel) 25 mg PO HS JULIA PRN Reason: Protocol Stop: 01/12/17 20:59 Last Admin: 11/14/16 20:42 Dose: 25 mg Sodium Phosphate (Fleet Enema) 135 ml RC Q48H PRN PRN Reason: IF DULCOLAX INEFFECTIVE FOR CO Stop: 01/11/17 22:04 Assessment/Plan - Problem List Patient Problems: All Active Problems PAIN AND SWELLING TO LEFT ANKLE (Acute)
[2016-11-15] MEDS: Aspirin 81mg Chewable Tab PO SCH (11:16)
--- NOTE | 2016-11-15 14:34 | Consultation ---
DATE OF CONSULTATION: 11/14/2016 HISTORY OF PRESENT ILLNESS: The patient is a 61-year-old lady, who is a resident of a [facility] in [place] admitted to [facility] on 11/12/2016 for treatment regarding fractures of her left ankle and a retained external fixation device. There is some infection related to the retained device. The patient stated that she has been a normal active ambulator and was injured in 07/2016 and as treatment of her ankle fracture, an external fixator was placed. She has been in touch with the doctor who applied the fixator and she stated he plans to soon remove it. ADDITIONAL PAST HISTORY: Hyperlipidemia, mild dementia, hypertension, polyneuropathy, arteriosclerotic cardiovascular disease, GERD, rheumatoid arthritis, bipolar disorder, and hyponatremia. PHYSICAL EXAMINATION: The patient was examined in her hospital room at [facility]. There was an external fixation device in place on the left leg spanning the ankle. There is some purulence around several of the fixation pins. There was swelling and disuse of the left calf. Sensation grossly intact. DIAGNOSTICS: X-rays reviewed images in the PACS; left ankle, there is severe osteopenia of the displayed tibia, fibula, ankle, and foot. The fractures of the lower tibia and fibula are not healed. There is some lysis of the bone. This looks very osteoporotic and unstable. ORTHOPEDIC DIAGNOSIS: Status post application of external fixator for fractures, left ankle in 07/2016. RECOMMENDATIONS: Indeed the patient should have this device removed and the infection treated. She can be placed in a cast or a posterior splint to stabilize the ankle. The bone was of such poor quality, there is no fixation possible; she will have to be maintained in a device such as a removable cast. I will defer to the treating orthopedist who applied the fixator to take it out. Thank you for this interesting referral. JOB# [id number]
--- NOTE | 2016-11-15 14:55 | Progress Notes ---
DATE: 11/15/2016 SUBJECTIVE: Chart reviewed and the patient interviewed. Also discussed the patient's condition with the staff and reviewed records and labs. The patient is still anxious and she is still in a depressed mood. The patient also is complaining of severe insomnia. The patient added that she was taking Ambien to help her to sleep at night. The patient also is guarded and isolative. Otherwise, the patient is compliant with taking her medications and the patient denies any side effects of medications. ASSESSMENT: The patient is still depressed. TREATMENT PLAN: We will continue Lexapro and Seroquel. We will add Ambien on a p.r.n. basis. Also, we will continue to monitor her behavior and continue working on her ineffective coping. JOB# [id number]
--- NOTE | 2016-12-04 01:28 | Discharge Summary ---
DATE OF DISCHARGE: 11/15/2016 HOSPITAL COURSE: The patient was admitted because of the low sodium up to 120, and has severe hyponatremia, left leg swelling, ____ pain status post prior surgery, history of psychosis and bipolar disorder, and the patient was admitted, Dr. Simon saw the patient, was given some normal saline. The patient gradually improved. Sodium improved. Has left leg pain and swelling also improved and arrangements were made for the patient to back to [place] and then later on to see the surgeon for her foot problem and the patient was sent to [place] on 11/15/2016 in a stable condition. MEDICATIONS: See the reconciliation sheet. ACTIVITY: As tolerated. JOB# [id number]
== END 2016-11-15 15:46 | disposition home or self-care (01) | DRG 560 ==
LOC: ER 15:08 → MSI 17:35
PROVIDERS: ADMIT Internal Medicine; ATTEND Internal Medicine
DX: T84.623A Infection and inflammatory reaction due to internal fixation device of left tibia, initial encounter (principal); E22.2 Syndrome of inappropriate secretion of antidiuretic hormone; F03.90 Unspecified dementia, unspecified severity, without behavioral disturbance, psychotic disturbance, mood disturbance, and anxiety; F33.9 Major depressive disorder, recurrent, unspecified; G62.9 Polyneuropathy, unspecified; I10 Essential (primary) hypertension; D63.8 Anemia in other chronic diseases classified elsewhere; Y83.8 Other surgical procedures as the cause of abnormal reaction of the patient, or of later complication, without mention of misadventure at the time of the procedure; F29 Unspecified psychosis not due to a substance or known physiological condition; G40.909 Epilepsy, unspecified, not intractable, without status epilepticus; J45.909 Unspecified asthma, uncomplicated; E78.5 Hyperlipidemia, unspecified; I25.10 Atherosclerotic heart disease of native coronary artery without angina pectoris; K21.9 Gastro-esophageal reflux disease without esophagitis; M06.9 Rheumatoid arthritis, unspecified; G47.00 Insomnia, unspecified; Y92.89 Other specified places as the place of occurrence of the external cause
CPT/HCPCS: 36415-UA; 73590-TC-LT; 73600-LT-TC; 80048-TC; 80053-TC; 80061-TC; 81001-TC; 82088-90; 82533-90; 83930-90; 84300-TC; 84443-TC; 84484-TC; 84550-TC; 85025-TC; 85610-TC; 86592-TC; 93005; J1644; J1885; J1940; J7030; J7131; Z7610